=== PATIENT | male | born 1965 | race Caucasian/White ===

== ENCOUNTER → 2023-08-30 14:51 | Outpatient (REF) | payer OTHER, SELFPAY | LOC: RAD 14:51 | PROVIDERS: ATTENDING PHYSICIAN Internal Medicine | DX: I65.23 Occlusion and stenosis of bilateral carotid arteries (principal) | CPT/HCPCS: 93880 ==

== ENCOUNTER 2023-12-14 07:11 | Emergency (ER) | payer OTHER, SELFPAY ==
--- NOTE | 2023-12-14 07:30 | ED.GENMED ---
History of Present Illness
General
Chief Complaint: Musculo-Skeletal Complaint
Source: patient
Time Seen by Provider: 12/14/23 07:23
History of Present Illness
History of Present Illness:
58-year-old male with past medical history of hypertension and GERD presenting the emergency department for evaluation after he accidentally dropped a manhole cover on the top of his right foot yesterday evening around 5 PM, continued pain and
swelling since. States has still been able to ambulate without much difficulty but does note discomfort while doing so. Denies any previous history of injury or surgery. Did not take anything for pain. Unsure of last tetanus. No other injuries
sustained.
Past History
Past History
ED Past Medical History: GERD and HTN
ED Past Surgical History: Appendectomy, Orthopedic and Other
Social History
Tobacco: Non-smoker
Alcohol: None
Drug: None
Personal:
Living: with family
Employment: Employed
Family History
Family History: Other (stroke in parent)
Review of Systems
Review of Systems
All Other Systems: ROS reviewed and negative except as documented in HPI and ROS
Phy Exam
Physical Exam
Physical Exam:
GENERAL: Alert , in no apparent distress
EYE: conjunctiva clear
Head: Normocephalic atraumatic
NECK: Supple,
ENT: mmm.
LUNGS: no acute respiratory distress
NEUROLOGICAL: Alert and oriented
SKIN: Warm and dry, skin intact. Migrating very superficial abrasion to the dorsum of the right foot measuring less than 1 cm without any active bleeding
MUSCULOSKELETAL: well perfused. Mild soft tissue swelling to the dorsum of the right foot at the level of the proximal second/third metatarsal with tenderness over this area. Remainder of extremities within normal limits and has full range of
motion
PSYCH: Normal and appropriate interaction.
Scores
Heart Failure Risk
Heart Failure Risk Score: Not Applicable
Heart Score for Chest Pain Patients
STEMI patient?: Not applicable
Withdrawal Assessment of Alcohol
Withdrawal Assessment Completed?: Not applicable
Course
Orders/Labs/Results
Orders:
Orders
12/14/23 07:14
Foot, Right 3 View [CR Foot - Right Min 3 Views] Urgent
Comment:
Reason For Exam: pain
Vital Signs
Initial and Last Documented VS:
Initial Vital Signs
Temp Pulse Resp Pulse Ox
98.5 F 82 18 98
12/14/23 07:12 12/14/23 07:12 12/14/23 07:12 12/14/23 07:12
Last Documented Vital Signs
Temp Pulse Resp BP Pulse Ox
98.5 F 84 16 121/77 98
12/14/23 07:12 12/14/23 07:33 12/14/23 07:33 12/14/23 07:33 12/14/23 07:12
MDM/Problems Addressed
Differential Diagnosis Includes:
Contusion, abrasion, less concern for fracture
MDM/Problems Addressed:
58-year-old male presenting the emergency department for evaluation after sustaining injury to the right foot yesterday evening. Continued pain and swelling this morning. X-ray ordered from triage and is negative for fracture. Based off of
mechanism and presentation I suspect contusion to be the most likely diagnosis. Patient declining tetanus vaccine. He does not want crutches or any other assistive devices to help him ambulate. Advised ice and elevation, NSAIDs/Tylenol as needed
for pain and compression to help with the pain and swelling. Advised on wound care. Aware of return precautions. Stable for discharge home.
*Radiology
Radiology exam reviewed: preliminary read by ED provider (No acute fracture)
*Pulse Oximetry
Patient hypoxic: no
*Critical Care Note
Total Time (30-74mins, 75-104mins- exclusive of procedures): Not Applicable
ED Attending Note
-
Portions of this chart may have been created with voice recognition software.� Occasional wrong word or��sound alike� substitutions may have occurred due to the inherent limitations of voice recognition software.
Discharge Plan
Departure
Patient Disposition: Home (Routine Discharge)
Date of Disposition: 12/14/23
Time of Disposition: 07:30
Patient with high blood pressure during this ER visit?: Yes
Discharge Problem:
Contusion of foot, right, Abrasion of foot, right
Instructions: Contusion (DC)
Prescriptions:
No Action
potassium [Potassium-99] 99 MG tablet
99 mg PO DAILY
amlodipine 10 MG tablet
10 mg PO HS
lisinopril 10 MG tablet
10 mg PO HS
cholecalciferol (vitamin D3) 1,000 UNITS tablet
1,000 units PO DAILY
multivitamin with folic acid [Tab-A-Carlos] 1 TABLET tablet
1 tab PO DAILY
Opc-3
1 cap PO DAILY
atorvastatin 40 MG tablet
40 mg PO QPM Qty: 30 0RF
thiamine HCl (vitamin B1) 100 MG tablet
100 mg PO DAILY 0RF
clopidogrel 75 MG tablet
75 mg PO DAILY Qty: 30 0RF
aspirin 81 MG tablet,chewable
81 mg PO DAILY 0RF
folic acid 1 MG tablet
1 mg PO DAILY 0RF
Interventions
Interventions:
*Risk Screen - Suicide Last Done: 12/14/23 07:12
*General Assessment Last Done: 12/14/23 07:12
*Neglect/Abuse Screening Last Done: 12/14/23 07:12
*Nursing Disposition Last Done: 12/14/23 07:54
ED-Musculoskeletal Assessment Last Done: 12/14/23 07:33
Discharge Date and Time
Discharge Date/Time: 12/14/23 07:54
Print Language: AZERI
[2023-12-14 07:33] VITALS: BP 121/77
== END 2023-12-14 07:54 | disposition home or self-care (01) ==
LOC: EMR 07:11
PROVIDERS: EMERGENCY PHYSICIAN Emergency Medicine; FAMILY PHYSICIAN Internal Medicine
DX: S90.31XA Contusion of right foot, initial encounter (principal); S90.811A Abrasion, right foot, initial encounter; I10 Essential (primary) hypertension; K21.9 Gastro-esophageal reflux disease without esophagitis; W22.8XXA Striking against or struck by other objects, initial encounter
CPT/HCPCS: 99283; 73630

== ENCOUNTER → 2024-01-03 12:50 | Outpatient (REF) | payer OTHER, SELFPAY | LOC: PAVMRI 12:50 | PROVIDERS: ATTENDING PHYSICIAN Internal Medicine | DX: M79.673 Pain in unspecified foot (principal); M79.604 Pain in right leg; S99.921A Unspecified injury of right foot, initial encounter | CPT/HCPCS: 73718 ==